=== PATIENT | female | born 1955 | race Hispanic/Latino ===

== ENCOUNTER → 2020-05-26 | Outpatient (CLI) | payer OTHER ==
--- NOTE | 2020-05-26 12:50 | Diagnostic Imaging Report ---
Exam: CHEST 2 VIEWS Date: 05/26/2020 12:45 PM INDICATION: ^[id number] ^1212 ^SHORTNESS OF BREATH Comparison: None FINDINGS: Lines/Tubes:None Lungs:The lungs are well inflated. No focal consolidation or pulmonary edema. Pleura:No pleural effusion. No pneumothorax. Heart/Mediastinum:The cardiomediastinal silhouette is normal in size and contour. Bones/Soft Tissues: No acute osseous abnormality. Mild to moderate multilevel degenerative changes of the spine are noted. Upper abdomen: Unremarkable. IMPRESSION: Negative for acute intrathoracic process. Signed by: Sanchez Lopez MD on 05/26/2020 12:46 PM
== END ==
LOC: RAD 12:11
PROVIDERS: ATTEND Internal Medicine
DX: R06.02 Shortness of breath (principal)
CPT/HCPCS: 71046

== ENCOUNTER → 2020-07-30 | Outpatient (CLI) | payer OTHER ==
--- NOTE | 2020-07-30 15:35 | Diagnostic Imaging Report ---
Cervical spine complete, 4 views INDICATION: ^[id number] ^1105 ^CERVICAL SPONDYLOSIS Comparison: None available. Discussion: There is straightening of the normal cervical lordosis. Disc-osteophyte complexes are noted at C3-4 through C6-7, most severe at C4-5 and C5-6. C1-C2 articulation is intact. The partially visualized portions of the odontoid are intact. Oblique views are concerning for neural foraminal narrowing bilaterally at C4-5 and C5-6. Negative for abnormal prevertebral soft tissue thickening or significant compression deformity. Soft tissues are unremarkable. IMPRESSION: Moderate to severe multilevel spondylolysis with straightening of the normal cervical lordosis. Findings are most prominent at C4-5 and C5-6 as described above. Consider follow-up cross-sectional imaging for further evaluation if clinically indicated. Signed by: Sanchez Lopez MD on 07/30/2020 3:32 PM
--- NOTE | 2020-07-30 15:39 | Diagnostic Imaging Report ---
Lumbar spine, complete, 4 views INDICATION: ^[id number] ^1105 ^LUMBAR SPONDYLOSIS Comparison: None available. Discussion: There are 5 lumbar-type nonrib-bearing vertebral bodies identified. There is preservation of normal lumbar lordosis and alignment. Oblique views are negative for pars interarticularis defect. No significant compression deformity is noted. There is mild to moderate multilevel disc space narrowing, most severe at the lower thoracic spine. Within the lumbar spine findings are most severe at L5-S1. Significant facet arthropathy is noted at L4-5 and L5-S1. No vacuum phenomena is identified. Postsurgical changes are identified in the pelvis and right upper quadrant. IMPRESSION: Negative for compression deformity. Moderate multilevel degenerative changes of the lower thoracic spine and focal moderate to severe degenerative changes L5-S1. Signed by: Sanchez Lopez MD on 07/30/2020 3:35 PM
== END ==
LOC: MAMMO 09:39
PROVIDERS: ATTEND Internal Medicine
DX: Z12.31 Encounter for screening mammogram for malignant neoplasm of breast (principal); M47.892 Other spondylosis, cervical region; M47.896 Other spondylosis, lumbar region
CPT/HCPCS: 72050; 72110; 77067